=== PATIENT | male | born 1960 | race Caucasian/White ===

== ENCOUNTER 2017-07-18 14:56 | Outpatient (CLI) | payer OTHER | END 2017-07-18 14:57 | disposition home or self-care (01) | LOC: BICRAD 14:56 | PROVIDERS: ATTEND Family Medicine | DX: S89.91XD Unspecified injury of right lower leg, subsequent encounter (principal) ==

== ENCOUNTER 2017-08-10 08:49 | Outpatient (CLI) | payer OTHER ==
--- NOTE | 2017-08-10 11:50 | MRI ---
MRI RIGHT KNEE: 08/10/2017 PROVIDED CLINICAL HISTORY: Right knee pain. FINDINGS: The anterior cruciate ligament, posterior cruciate ligament, medial collateral ligament, and lateral collateral ligament complex demonstrate an intact MRI appearance, as does the extensor mechanism. There is a complex tear involving the posterior horn of the lateral meniscus, as it approaches the me niscal root. There is a complex, nondisplaced tear involving the body of the medial meniscus. There is extensive full-thickness articular cartilage loss involving the lateral patellar facet and t he lateral femoral trochlea. Articular cartilage irregularity involves the median ridge and medial p atellar facet cartilage. There is articular cartilage irregularity with foci of apparent full-thickn ess articular cartilage loss involving the lateral femoral condyle centrally. There is a moderate knee joint effusion with intraarticular bodies. The largest intraarticular body is present within the medial meniscofemoral recess and measures about 7 mm. Osteophytes are seen about the knee. Small chronic bone infarct, central femoral metaphyseal region. Intraosseous ganglion formations adjacent to tibial eminence. No focal concerning regional marrow or muscular signal abnormality. Evidence for Snow's cyst formation and associated rupture. IMPRESSION: 1. Medial and lateral meniscal tears, as described. 2. 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 3. Snow's cyst formation with probable rupture. POS: OFF
== END 2017-08-10 08:50 | disposition home or self-care (01) ==
LOC: SCSMRI 08:49
PROVIDERS: ATTEND Family Medicine
DX: S89.91XD Unspecified injury of right lower leg, subsequent encounter (principal); S83.241A Other tear of medial meniscus, current injury, right knee, initial encounter; S83.281A Other tear of lateral meniscus, current injury, right knee, initial encounter; M71.21 Synovial cyst of popliteal space [Baker], right knee

== ENCOUNTER 2017-08-30 08:50 | Outpatient (CLI) | payer OTHER ==
[2017-08-30 10:11] LABS: #Eosinphils 0.1 thou/uL (0.0-0.7); #Lymphocytes 1.8 thou/uL (1.20-3.40); #Monocytes 0.7 thou/uL (0.11-0.59); #Neutrophils 8.1 thou/uL (1.40-6.50); %Basophils 0.4 % (0.0-1.0); %Eosinophils 0.9 % (0.0-10.0); %Lymphocytes 16.6 % (21.0-51.0); %Monocytes 6.2 % (0.0-10.0); %Neutrophils 75.9 % (42.0-75.0); Hemoglobin 16.3 g/dL (14.0-18.0); Mean Corpuscular HGB CONC 34.4 g/dL (32.0-36.0); Mean Corpuscular Hemoglobin 33.5 pg (27.0-31.0); Mean Corpuscular Volume 97.3 fl (80.0-94.0); Mean Platelet Volume 8.3 fL (7.4-10.4); Platelet Count 225 thou/uL (130-400); RBC Distribution Width 12.1 % (11.5-14.5); Red Blood Cell (RBC) Count 4.88 mill/uL (4.70-6.10); White Blood Cell (WBC) Count 10.7 thou/uL (4.8-10.8)
[2017-08-30 10:33] LABS: Anion Gap 12 mmol/L (10-20); BUN (Urea Nitrogen) 15 mg/dL (8.4-25.7); Calc. Creatinine Clearance 0 mL/min (70-130); Calcium 9.8 mg/dL (7.8-10.44); Carbon Dioxide 25 mmol/L (22-29); Chloride 105 mmol/L (98-107); Estimated GFR-MDRD 76; Glucose 89 mg/dL (70-105); Potassium 4.1 mmol/L (3.5-5.1); Sodium 138 mmol/L (136-145)
--- NOTE | 2017-08-31 20:19 | EKG ---
Test Reason : Blood Pressure : / mmHG Vent. Rate : 084 BPM Atrial Rate : 084 BPM P-R Int : 188 ms QRS Dur : 084 ms QT Int : 352 ms P-R-T Axes : 036 086 000 degrees QTc Int : 415 ms Normal sinus rhythm Possible Anterior infarct , age undetermined Abnormal ECG No previous ECGs available Confirmed by NEAL KING (2) on 08/31/2017 8:19:04 PM Referred By: IERO Confirmed By:NEAL KING
== END 2017-08-30 08:51 | disposition home or self-care (01) ==
LOC: LABBT 08:50
PROVIDERS: ATTEND Orthopaedic Surgery
DX: Z01.818 Encounter for other preprocedural examination (principal); S83.206A Unspecified tear of unspecified meniscus, current injury, right knee, initial encounter
CPT/HCPCS: 80048; 85025; 93005; 93010

== ENCOUNTER 2017-08-31 07:17 | Day surgery (SDC) | payer OTHER ==
[2017-08-30 09:12] VITALS: BMI 33.5
[2017-08-31] MEDS ORDERED: CEFAZOLIN/Water 2 GM/20 ML SYRINGE ONE (08:43)
[2017-08-31] MEDS ORDERED: PROPOFOL 20 ML ONE (08:47)
[2017-08-31] MEDS ORDERED: Fentanyl 100 MCG/2 ML VIAL ONE (10:11)
[2017-08-31] MEDS ORDERED: Bupivacaine HCl 0.5%/Epinephrine 1:200,000/PF 30 ml Vial ONE (11:45)
[2017-08-31] MEDS ORDERED: Lidocaine 2% w/Epinephrine 1:200K 20 ML VIAL ONE (11:45)
--- NOTE | 2017-08-31 14:26 | OP ---
DATE OF PROCEDURE: 08/31/2017 PREOPERATIVE DIAGNOSIS: Right knee medial and lateral meniscal tear as well as a loose body. POSTOPERATIVE DIAGNOSES: 1. Posterior horn complex tear medial meniscus. 2. Tear in the posterior horn of the lateral meniscus. 3. Large cartilaginous loose body in the lateral gutter. 4. Grade 3 changes with large unstable chondral flap of both the medial and lateral femoral condyles . 5. Grade 3-4 changes in the patellofemoral joint, including patella and trochlea. PROCEDURES PERFORMED: 1. Right knee arthroscopy, partial medial and lateral meniscectomy. 2. Removal of loose body greater than 1 cm from the lateral gutter. 3. Debridement and shaving of unstable chondral flaps. SURGEON: Dashawn Sampson M.D. ACCORDION MAKER: None. BLOOD LOSS: Minimal. COMPLICATIONS: None. ANESTHESIA: He had general anesthetic as well as a local knee block. DISPOSITION: He went to recovery room in stable condition. INDICATIONS: This is a 56-year-old male who comes in complaining of pain, swelling and catching of t he knee. At this time, he opted to have surgery. OPERATIVE PROCEDURE: After all appropriate consent forms were explained and signed, he was taken to the operating room and at this time was given general anesthetic. Once anesthesia was appropriate, t he tourniquet was placed on the right thigh and the leg was placed in the arthroscopic leg escobar. I t was then prepped and draped in the standard surgical fashion. Limb was then exsanguinated and the tourniquet was taken to 300 mmHg. An inferolateral portal was established. Scope was placed into th e knee joint. A needle localization technique was then used to make a medial working portal. Diagno stic arthroscopy commenced in the notch. The ACL and PCL were probed and found to be intact. The me dial compartment was evaluated. There was a large complex tear of the posterior horn of the medial m eniscus and a partial meniscectomy was performed using meniscal biter and shaver back to a stable bas e. We also then noted some chondral flaps. There was one smaller one and then there was a large cho ndral flap on the medial femoral condyle, which uncovered an area approximately 1.5 cm in diameter. This was not full thickness cartilage loss, but again once this flap was taken down to a stable base, it was approximately a 1.5 cm in diameter. The lateral compartment was evaluated. Again, a lateral tear was noted in the posterior horn. A partial meniscectomy was performed using meniscal biter and shaver. The lateral compartment also had an unstable chondral flap on the femur, which was taken do wn to a stable base. The patellofemoral joint showed grade 3 and 4 changes. No treatment was needed . The gutters were swept through. The lateral gutter had a large loose body greater than a centimet er in diameter. This cartilaginous loose body was removed with a grasper. We then thoroughly irriga jenny through the knee, removed the scope, drained the knee and closed each portal with simple nylon st itch. Bulky sterile dressing was applied and the tourniquet was let down. Toes pinked up nicely. T he patient was then awakened. He was taken to the recovery room in stable condition. All counts wer e correct at the end of the case and he did receive preoperative IV antibiotics.
[2017-08-31] MEDS ORDERED: Lidocaine 1% PF 5 ML VIAL ONE (15:19)
[2017-08-31] MEDS ORDERED: PROPOFOL 200 MG/20 ML VIAL ONE (15:19)
[2017-08-31] MEDS ORDERED: Ketorolac Tromethamine 30 MG/ML VIAL ONE (15:19)
== END 2017-08-31 12:40 | disposition home or self-care (01) ==
LOC: SDC 07:17
PROVIDERS: ATTEND Orthopaedic Surgery
PROC: 0SBC4ZZ Excision of Right Knee Joint, Percutaneous Endoscopic Approach (ICD-10-PCS; principal; 2017-08-31)
DX: S83.231A Complex tear of medial meniscus, current injury, right knee, initial encounter (principal); S83.281A Other tear of lateral meniscus, current injury, right knee, initial encounter; F17.210 Nicotine dependence, cigarettes, uncomplicated; Z79.82 Long term (current) use of aspirin; Z79.899 Other long term (current) drug therapy; Z98.890 Other specified postprocedural states
CPT/HCPCS: G8978-GP-CI; G8979-GP-CI; G8980-GP-CI; J0670; J1885; J2001; J2704; J3010